=== PATIENT | male | born 1990 | race Caucasian/White ===

== ENCOUNTER 2016-12-07 20:44 | Emergency (ER) | payer MEDICAID ==
[2016-12-07] MEDS ORDERED: KETOROLAC TROMETHAMINE 30 MG/ML VIAL ONE (21:19)
[2016-12-07] MEDS ORDERED: ONDANSETRON HCL 4 MG/2 ML VIAL ONE (21:19)
[2016-12-07 23:27] LABS: CSF GLUCOSE 63 mg/dL (40-70); CSF TOTAL PROTEIN 33 mg/dL (12-60)
[2016-12-07 23:34] LABS: FLUID VOLUME 6 mL
[2016-12-07 23:35] LABS: FLUID COLOR TUBE 1 COLORLESS (COLORLESS)
--- NOTE | 2016-12-08 00:20 | ER NURSING DOCUMENTATION ---
Nurse's Notes [facility] Name:Derrick Camejo Age:26 yrs Sex:Male :1990 Arrival Date:12/07/2016 Time:20:44 Bed1 Private MD: Diagnosis:Viral Illness Presentation: 12/07 20:54 Presenting complaint: Patient states: pt states he has had neck pain nausea and st vomiting starting yesterday. Pt denies any trauma. Pt does not wish to turn his head. Transition of care: Home. 20:54 Acuity: JESSICA 3 st 20:54 Method Of Arrival: Private Vehicle st 20:57 Notified ED Physician of Dr. Pool notified. st 22:37 Acuity: JESSICA 2 lpr Triage Assessment: 20:58 General: Appears uncomfortable, Behavior is cooperative, pt denies any medical hx st though he acts as if there may be some hx of developmental delay. . General: pt does not move his head around but holds it in one position. . Pain: Complains of pain in neck Pain currently is 9 out of 10 on a pain scale. Pain began 1 day ago. EENT: No deficits noted. Neuro: No deficits noted. Respiratory: Airway is patent Respiratory effort is even, unlabored, Respiratory pattern is regular, symmetrical, Breath sounds are clear bilaterally. GI: Abdomen is obese, Abd is soft and non tender X 4 quads. Reports nausea, vomiting. Musculoskeletal: Tenderness present in posterior cervical area Reports pain in posterior cervical area. Historical: - Allergies: No known drug Allergies; - Home Meds: 1. None - PMHx: None; - PSHx: None; - Tetanus: unknown. - Ebola Screening: : Patient denies exposure to infectious person. Patient denies travel to an Ebola-affected area in the 21 days before illness onset. . - Immunization history: Pneumococcal vaccine status is unknown. - Social history: The patient works at [employer]., Grew up in [place]. After high school he went to [employer], studied [employer] in [place]. 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 Just got 2 weeks ago., Smoking status: Patient states former smoker of tobacco. Patient/guardian denies using alcohol, marijuana. Screenin:01 Infectious Disease Risk None. Abuse screen: Denies threats or abuse. Denies injuries st from another. pt states he is safe at home. Nutritional screening: No deficits noted. Assessment: 21:36 General: Appears ill, Behavior is cooperative, mentally delayed.. Pain: Complains of lpr pain in scalp and back and posterior cervical area and neck. Neuro: Level of Consciousness is awake, alert, obeys commands, Oriented to person, place, time. EENT: Oral mucosa is moist. Cardiovascular: No deficits noted. Respiratory: Airway is patent Respiratory effort is even, unlabored, Respiratory pattern is regular, symmetrical, Denies cough. GI: Abdomen is non- distended Reports nausea, vomiting. : No deficits noted. Derm: Skin is flushed. Musculoskeletal: Circulation, motion, and sensation intact Capillary refill < 3 seconds Reports pain in back and posterior cervical area and neck. Nursing diagnosis: Alteration in comfort: actual related to body aches. 12/08 00:14 Reassessment: Patient states feeling better. Patient states symptoms have improved. lpr Vital Signs: 12/07 21:00 BP 125 / 83; Pulse 112; Resp 18; Temp 98.8; Pulse Ox 92% ; Pain 8/10; st 21:35 Temp 98.5(O); lpr 23:44 BP 122 / 63 (auto/); lpr 23:47 Pulse 97; Temp 98.3(O); Pulse Ox 92% on R/A; lpr [place] Coma Score: 22:41 Eye Response: spontaneous(4). Verbal Response: oriented(5). Motor Response: obeys tl1 commands(6). Total: 15. ED Course: 20:49 Patient arrived in ED. ma1 20:53 Trina Mcdonald, RN is Primary Nurse. st 20:[address] 21:04 Valuables Remains with patient Patient has correct armband on for positive st identification. Bed in low position. 21:19 Omar Pool MD is Attending Physician. tl1 21:25 Flu Swab done. Inserted saline lock: 20 gauge in right antecubital area and blood lpr collected. 22:38 Assist Provider Assist provider with lumbar puncture: Set up LP tray. Performed by Omar Pool MD CSF is clear. Puncture site dressed with band aid, Procedure was successful. Patient tolerated well. 23:52 [facility] is Referral Physician. tl1 Administered Medications: 21:30 Drug: Zofran 4 mg; Route: IVP; Infused Over: 2 mins; Site: right antecubital; lpr 12/08 00:15 Follow up: Response: Nausea is decreased lpr 12/07 21:30 Drug: Toradol 15 mg; Route: IVP; Site: right antecubital; lpr 12/08 00:15 Follow up: Response: Pain is decreased lpr 12/07 21:30 Drug: NS 0.9% 1000 ml; Route: IV; Rate: bolus; Site: right antecubital; lpr 22:15 Follow up: IV Status: Completed infusion lpr 22:46 Drug: NS 0.9% 1000 ml; Route: IV; Rate: bolus; Site: right antecubital; lpr 12/08 00:18 Follow up: Stop time, 12/07/16 at 23:48 lpr Intake: Outcome: 12/07 23:53 Discharge ordered by . [email or web address] 12/08 00:13 Discharged to home ambulatory, with significant other. lpr Condition: improved Discharge Assessment: Patient awake, alert and oriented x 3. No cognitive and/or functional deficits noted. Patient verbalized understanding of disposition instructions. Discharge instructions given to patient, significant other, Instructed on discharge instructions, follow up and referral plans. medication usage, Demonstrated understanding of instructions. IV D/Erick 00:19 Patient left the ED. lpr 10:57 Discharge F/U Call: Spoke with: patient. other: Name: pt states he is feeling a st little better. pt wanted to know if it was normal for the LP sight to be sore he was assured that it was. Signatures: Trina Mcdonald RN RN st Roberts, Leslie, RN RN lpr Leigh, Tom, MD MD tl1 [facility]
--- NOTE | 2016-12-08 00:20 | ER PHYSICIAN DOCUMENTATION ---
Physician Documentation [facility] Name:Derrick Camejo Age:26 yrs Sex:Male :1990 Arrival Date:12/07/2016 Time:20:44 Bed1 Private MD: Omar Calabrese Disposition: 12/08 18:03 Chart complete. tl1 Disposition: 12/07/16 23:53 Discharged to Home/Self Care. Impression: Viral Illness. - Condition is Good. - Discharge Instructions: VIRAL SYNDROME (Adult). - Work release form, Medical Reconciliation form form. - Follow up: [facility]; When: 2 - 3 days; Reason: Recheck today's complaints, Continuance of care. - Problem is new. - Symptoms have improved. HPI: 12/07 20:54 This 26 yrs old Male presents to ER via Private Vehicle with complaints of tl1 Neck Problem. 20:54 The patient or guardian complains of pain, that is acute. tl1 21:34 He was well until 2 days ago when he developed some fatigue, malaise, a mild ST and a tl1 mild cough. He had some diffuse myalgias and back pain, subjective fever, and some chills and sweats. Today he developed a stiff painful neck and mild h/a. Because of the neck pain he comes here for evaluation. He is fully immunized.. Historical: - Allergies: No known drug Allergies; - Home Meds: 1. None - PMHx: None; - PSHx: None; - Tetanus: unknown. - Ebola Screening: : Patient denies exposure to infectious person. Patient denies travel to an Ebola-affected area in the 21 days before illness onset. . - Immunization history: Pneumococcal vaccine status is unknown. - Social history: The patient works at [employer]., Grew up in [place]. After high school he went to [employer], studied [employer] in [place]. 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 Just got 2 weeks ago., Smoking status: Patient states former smoker of tobacco. Patient/guardian denies using alcohol, marijuana. ROS: 21:39 Neck: Positive for pain with movement, pain at rest, stiffness, Negative for mass, tl1 rash, swollen nodes, bony tenderness. 21:39 All other systems are negative. Exam: 22:41 Constitutional: This is a well developed, well nourished patient who is awake, alert, tl1 and in no acute distress. Head/Face: Normocephalic, atraumatic. Eyes: Pupils equal round and reactive to light, extra-ocular motions intact. Lids and lashes normal. Conjunctiva and sclera are non-icteric and not injected. Cornea within normal limits. Periorbital areas with no swelling, redness, or edema. 22:41 ENT: Nares patent. No nasal discharge, no septal abnormalities noted. Tympanic tl1 membranes are normal and external auditory canals are clear. Oropharynx with no redness, swelling, or masses, exudates, or evidence of obstruction, uvula midline. Mucous membranes moist. Cardiovascular: Regular rate and rhythm with a normal S1 and S2. No gallops, murmurs, or rubs. Normal PMI, no JVD. No pulse deficits. Respiratory: Lungs have equal breath sounds bilaterally, clear to auscultation and percussion. No rales, rhonchi or wheezes noted. No increased work of breathing, no retractions or nasal flaring. Abdomen/GI: Soft, non-tender, with normal bowel sounds. No distension or tympany. No guarding or rebound. No evidence of tenderness throughout. 22:41 Skin: Warm, dry with normal turgor. Normal color with no rashes, no lesions, and no evidence of cellulitis. 22:41 Neck: External neck: is normal, C-spine: vertebral tenderness, is not appreciated, ROM/movement: pain, that is moderate, with any movement, nuchal rigidity, that is moderate, Lymph nodes: no appreciated lymphadenopathy. 22:41 Neuro: Orientation: is normal, Mentation: is normal, Memory: is normal, Cranial nerves: grossly normal, Motor: moves all fours, Sensation: no obvious gross deficits, Gait: is steady, at a normal pace, appropriate for age. Vital Signs: 21:00 BP 125 / 83; Pulse 112; Resp 18; Temp 98.8; Pulse Ox 92% ; Pain 8/10; st 21:35 Temp 98.5(O); lpr 23:44 BP 122 / 63 (auto/); lpr 23:47 Pulse 97; Temp 98.3(O); Pulse Ox 92% on R/A; lpr [place] Coma Score: 22:41 Eye Response: spontaneous(4). Verbal Response: oriented(5). Motor Response: obeys tl1 commands(6). Total: 15. Procedures: 12/08 00:15 Lumbar Puncture: Patient placed in left lateral decubitus position. Prepped with tl1 Betadine. Draped using sterile technique. Collected 6 ml's of Puncture site dressed with band aid, Patient tolerated well. L3-4 interspace.. MDM: 12/07 21:19 Patient medically screened. tl1 22:44 Differential diagnosis: bacterial meningitis, viral meningitis. Data reviewed: vital tl1 signs, nurses notes, lab test result(s), csf, and as a result, I will discharge patient. Counseling: I had a detailed discussion with the patient and/or guardian regarding: the historical points, exam findings, and any diagnostic results supporting the discharge/admit diagnosis, lab results, the need for outpatient follow up, to return to the emergency department if symptoms worsen or persist or if there are any questions or concerns that arise at home. Medication response: The patient's symptoms have improved. Response to treatment: the patient's symptoms have markedly improved after treatment, and as a result, I will discharge patient. 12/08 00:00 ED course: He received a liter of IVNS and 15 mg of IV toradol and felt somewhat tl1 better. I checked his temp 3 times and it was 98.3-98.5. He continued to have some neck pain. He tolerated the LP very well, and the CSF was completely normal. He appears to have a viral syndrome of some sort. I doubt any deep space neck infection or cervical osteomyelitis, discitis or paravertebral bacterial infection at this time. I did discuss with Derrick and his that while I really doubt any worrisome emergency medical condition now,, that he needs to return to the ED for any worsening.. 12/07 21:52 Order name: INFLUENZA A/B; Complete Time: 23:51 EDMS 12/07 23:38 Interpretation: Normal. tl1 12/07 23:28 Order name: CSF GLUCOSE; Complete Time: 23:51 EDMS 12/07 23:39 Interpretation: Normal: CSF GLUCOSE 63. tl1 12/07 23:28 Order name: CSF TOTAL PROTEIN; Complete Time: 23:51 EDMS 12/07 23:39 Interpretation: CSF TOTAL PROTEIN 33. tl1 12/07 23:36 Order name: WBC WITH DIF, CSF; Complete Time: 23:51 EDMS 12/07 23:40 Interpretation: Normal: FLD COLOR TUBE 2 COLORLESS; FLD COLOR TUBE 3 COLORLESS; FLD tl1 COLOR TUBE 4 COLORLESS; FLD COLOR TUBE 3 POST CENTRIF COLORLESS; FLUID VOLUME 6; FLUID COLOR TUBE 1 COLORLESS; FLUID CLARITY CLEAR; WBC COUNT, BODY FLUID 1. 12/07 23:55 Order name: CSF CULTURE AND GRAM STAIN EDMS 12/08 18:03 Interpretation: Normal: GRAM STAIN NO ORGANISMS SEEN. tl1 12/07 21:05 Order name: Iv Saline Lock; Complete Time: 21:35 st Dispensed Medications: 12/07 21:30 Drug: Zofran 4 mg; Route: IVP; Infused Over: 2 mins; Site: right antecubital; lpr 12/08 00:15 Follow up: Response: Nausea is decreased lpr 12/07 21:30 Drug: Toradol 15 mg; Route: IVP; Site: right antecubital; lpr 12/08 00:15 Follow up: Response: Pain is decreased lpr 12/07 21:30 Drug: NS 0.9% 1000 ml; Route: IV; Rate: bolus; Site: right antecubital; lpr 22:15 Follow up: IV Status: Completed infusion lpr 22:46 Drug: NS 0.9% 1000 ml; Route: IV; Rate: bolus; Site: right antecubital; lpr 12/08 00:18 Follow up: Stop time, 12/07/16 at 23:48 lpr Signatures: Trina Mcdonald RN RN st Roberts, Leslie, RN RN lpr Leigh, Tom, MD MD tl1
== END 2016-12-08 00:19 | disposition home or self-care (01) ==
LOC: ER 20:44
DX: B34.9 Viral infection, unspecified (principal); M54.2 Cervicalgia
CPT/HCPCS: 62270; 82945; 84157; 85007; 87070; 87205; 87449; 89051; 96361; 96374; 96375; 99284; J1885; J2405

== ENCOUNTER 2016-12-20 21:03 | Emergency (ER) | payer MEDICAID ==
[2016-12-20] MEDS ORDERED: ONDANSETRON ODT 4 MG TAB.RAPDIS ONE (21:27)
[2016-12-20] MEDS ORDERED: ACETAMINOPHEN 325 MG TABLET PO ONE (21:36)
[2016-12-20] MEDS ORDERED: IBUPROFEN 600 MG TABLET PO ONE (21:36)
[2016-12-20 21:37] LABS: BASOPHIL# 0.1 X 10^3uL (0.0-0.1); BASOPHILS 0.8 % (0.0-2.0); EOSINOPHILS 2.1 % (0.0-6.0); EOSINOPHILS# 0.2 X 10^3uL (0.0-0.4); HEMATOCRIT 47.2 % (42.0-54.0); HEMOGLOBIN 16.2 g/dL (14.0-18.0); LYMPHOCYTES 36.2 % (20.0-40.0); LYMPHOCYTES# 3.5 X 10^3uL (0.8-3.8); MEAN CELL VOLUME 81.1 fL (80.0-100.0); MEAN CORPUS. HGB CONCENTRATION 34.3 g/dL (32.0-36.0); MEAN CORPUSCULAR HEMOGLOBIN 27.8 pg (29.0-35.0); MEAN PLATELET VOLUME 8.2 fL (7.4-10.4); MONOCYTES 7.5 % (2.0-10.0); MONOCYTES# 0.7 X 10^3uL (0.2-1.0); NEUTROPHILS 53.4 % (54.0-75.0); NEUTROPHILS# 5.2 X 10^3uL (2.6-6.7); PLATELET COUNT 315 X 10^3uL (130-440); RED BLOOD COUNT 5.82 X 10^6uL (4.20-6.10); RED CELL DISTRIBUTION WIDTH 13.1 % (11.5-14.5); WHITE BLOOD COUNT 9.7 X 10^3uL (3.9-10.7)
[2016-12-20 21:56] LABS: C-REACTIVE PROTEIN < 5.0 mg/L (<10.0)
--- NOTE | 2016-12-20 22:05 | ER PHYSICIAN DOCUMENTATION ---
Physician Documentation [facility] Name:Derrick Camejo Age:26 yrs Sex:Male :1990 Arrival Date:12/20/2016 Time:21:03 Bed1 Private MD: Kaden Andres Disposition: 12/20/16 21:54 Discharged to Home/Self Care. Impression: Viral Syndrome - Influenza, Dehydration, Nausea. - Condition is Fair. - Discharge Instructions: DEHYDRATION (6y-Adult), NAUSEA VOMITING 6yAdult - VOMITING (6y-Adult), Viral Disease - VIRAL SYNDROME (Adult). - Prescriptions for Zofran 4 mg Oral - take 1 tablet by ORAL route every 6 hours; 6 tablet. - Medical Reconciliation form form. - Follow up: Private Physician; When: 7 - 10 days; Reason: Recheck today's complaints, Continuance of care. - Problem is an ongoing problem. - Symptoms have improved. - Notes: Drink 2 - 3 quarts of water or Gatorade every day Take Tylenol 650mg by mouth every 6 hours for 2 - 3 days. Take Ibuprofen 600mg by mouth every 6 hours for 2 - 3 days Rest.... Take Zofran 4mg under tongue every 6 hours as needed for nausea or vomiting HPI: 12/20 21:15 This 26 yrs old Male presents to ER via Private Vehicle with complaints of cd Back Pain, Headache. 21:15 The patient presents with pain and tenderness. The symptoms are located in the low cd back. Onset: The symptoms/episode began/occurred gradually, 2 week(s) ago. The pain does not radiate. Associated signs and symptoms: Pertinent positives: headache, nausea, Pertinent negatives: abdominal pain, chest pain, fever, hematuria, numbness, tingling, urinary retention, vomiting. The problem was sustained at home, from a chronic condition, The patient came to the [facility] ED 2 weeks ago with similar symptoms. Dr. Pool performed a Lumbar Puncture which was negative. The patient 's Flu Test was also negative. He denies injury. He drinks very little water.. Severity of symptoms: At their worst the symptoms were mild, in the emergency department the symptoms are unchanged. Historical: - Allergies: No known drug Allergies; - Home Meds: 1. None - PMHx: None; Viral Illness (December 07, 2016); - PSHx: None; - Tetanus: < 10 years. - Ebola Screening: : Patient negative for fever greater than or equal to 101.5 degrees Fahrenheit, and additional compatible Ebola Virus Disease symptoms. - Immunization history: Flu Vaccine < 1 year. - Social history: Smoking status: Patient uses tobacco products, current every day smoker. ROS: 21:15 Eyes: Negative for injury, pain, redness, discharge, blurry vision and loss of vision. cd ENT: Negative for injury, pain, epistaxis and discharge. Neck: Negative for injury, pain, stiffness and swelling. Cardiovascular: Negative for chest pain, palpitations, edema and pleuritic pain. Respiratory: Negative for shortness of breath, dyspnea on exertion, cough, sputum production, wheezing, hemoptysis and pleuritic chest pain. Abdomen/GI: Negative for abdominal pain, nausea, vomiting, diarrhea, constipation, distension, melena, hematochezia and hematemesis. : Negative for injury, bleeding, discharge, swelling, dysuria, frequency or urgency. MS/Extremity: Negative for injury, deformity, edema, calf tenderness, pain or coldness. Skin: Negative for injury, rash, itching and discoloration. 21:15 Neuro: Negative for headache, weakness, numbness, tingling, and seizure. cd 21:15 Constitutional: Positive for fever, poor PO intake, Negative for chills. 21:15 Back: Positive for pain at rest, of the left low back and right low back. 21:15 All other systems are negative. Exam: Head/Face: Normocephalic, atraumatic. Eyes: Pupils equal round and reactive to light, extra-ocular motions intact. Lids and lashes normal. Conjunctiva and sclera are non-icteric and not injected. Cornea within normal limits. Periorbital areas with no swelling, redness, or edema. ENT: Nares patent. No nasal discharge, no septal abnormalities noted. Tympanic membranes are normal and external auditory canals are clear. Oropharynx with no redness, swelling, or masses, exudates, or evidence of obstruction, uvula midline. Mucous membranes dry Neck: Trachea midline, no thyromegaly or masses palpated, and no cervical lymphadenopathy. Supple, full range of motion without nuchal rigidity, or vertebral point tenderness. No Meningismus. Chest/axilla: Normal chest wall appearance and motion. Nontender with no deformity. No lesions are appreciated. Cardiovascular: Regular rate and rhythm with a normal S1 and S2. No gallops, murmurs, or rubs. Normal PMI, no JVD. No pulse deficits. Respiratory: Lungs have equal breath sounds bilaterally, clear to auscultation and percussion. No rales, rhonchi or wheezes noted. No increased work of breathing, no retractions or nasal flaring. Abdomen/GI: Soft, non-tender, with normal bowel sounds. No distension or tympany. No guarding or rebound. No evidence of tenderness throughout. Skin: Warm, dry with normal turgor. Normal color with no rashes, no lesions, and no evidence of cellulitis. MS/ Extremity: Pulses equal, no cyanosis. Neurovascular intact. Full, normal range of motion. 21:30 Neuro: Awake and alert, GCS 15, oriented to person, place, time, and situation. cd Cranial nerves II-XII grossly intact. Motor strength 5/5 in all extremities. Sensory grossly intact. Cerebellar exam normal. Normal gait. 21:30 Constitutional: The patient appears alert, awake, non-diaphoretic, non-toxic, well developed, well nourished, anxious, obese. 21:30 Back: pain, that is very mild, of the left low back and right low back, ROM is normal, normal spinal alignment noted, CVA tenderness, is absent. 21:30 Neuro: Sensation: is normal, Gait: is steady, Deep tendon reflexes are normal. 21:30 Back: No signs of infection over the LP site.. cd Vital Signs: 21:09 BP 142 / 71; Pulse 87; Resp 18; Temp 98.3(O); Pulse Ox 93% on R/A; Weight 90.72 kg; rh Height 5 ft. 7 in. (170.18 cm); Pain 4/10; 22:03 BP 110 / 71; Pulse 77; Resp 16; Pulse Ox 93% on R/A; Pain 1/10; rh 21:09 Body Mass Index 31.32 (90.72 kg, 170.18 cm) rh [place] Coma Score: 21:30 Eye Response: spontaneous(4). Verbal Response: oriented(5). Motor Response: obeys cd commands(6). Total: 15. MDM: 21:10 Data interpreted: Pulse oximetry: on room air is 93 %. Interpretation: normal. 21:30 Differential diagnosis: chronic back pain, Fatigue Pyelonephritis sprain, cd Ureterolithiasis. 21:42 Patient medically screened. 21:50 Data reviewed: vital signs, nurses notes, old medical records, lab test result(s), and cd as a result, I will discharge patient. 21:54 Counseling: I had a detailed discussion with the patient and/or guardian regarding: the cd historical points, exam findings, and any diagnostic results supporting the discharge/admit diagnosis, lab results, the need for outpatient follow up, for a recheck, with the patient's primary care provider, to return to the emergency department if symptoms worsen or persist or if there are any questions or concerns that arise at home. Response to treatment: the patient's symptoms have markedly improved after treatment, the patient's condition has returned to base line, and as a result, I will discharge patient. 12/20 21:49 Order name: CBC AUTO DIF, MDIF/RMOR IF IND; Complete Time: 08:02 EDMS 12/20 21:52 Interpretation: Normal. 12/20 21:57 Order name: C-REACTIVE PROTEIN; Complete Time: 08:02 EDMS 12/21 08:02 Interpretation: Normal. 12/20 21:39 Order name: Urine Dip; Complete Time: 21:42 rh 12/20 21:44 Order name: PO Challenge; Complete Time: 21:44 rh Dispensed Medications: 21:23 Drug: Zofran 4 mg; Route: PO; rh 21:26 Follow up: Response: Nausea is decreased rh 21:26 Drug: Tylenol 975 mg; Route: PO; rh 21:42 Follow up: Response: Pain is decreased rh 21:26 Drug: Ibuprofen 600 mg; Route: PO; rh 21:42 Follow up: Response: Pain is decreased rh Point of Care Testing: Urine Dip: 21:42 pH: 6.0; ; Specific [place]: 1.015; Ketones: Negative; Glucose: Negative; Protein: rh Negative; Leukocytes: Positive; Nitrite: Negative ; Blood: Non Hemolyzed Trace; Bilirubin: Negative ; Urobilinogen: Normal Signatures: Kaden Woodruff MD MD Marina Beck
--- NOTE | 2016-12-20 22:05 | ER NURSING DOCUMENTATION ---
Nurse's Notes [facility] Name:Derrick Camejo Age:26 yrs Sex:Male :1990 Arrival Date:12/20/2016 Time:21:03 Bed1 Private MD: Diagnosis:Viral Syndrome - Influenza;Dehydration;Nausea Presentation: 12/20 21:04 Acuity: JESSICA 4 rh 21:07 Presenting complaint: Patient states: Spinal tap done 2 weeks ago for neck stiffness rh along with N/V, came back clear and his flu was negative. Today he has low back pain, MORGAN and nausea. Transition of care: Home. 21:07 Method Of Arrival: Private Vehicle rh Triage Assessment: 21:08 General: Appears in no apparent distress, Behavior is cooperative. Pain: Complains of rh pain in left low back and right low back HEADACHE. EENT: Oral mucosa is dry. Neuro: Level of Consciousness is awake, alert, obeys commands, Oriented to person, place, time, event. Respiratory: Airway is patent Respiratory effort is even, unlabored, Respiratory pattern is regular, symmetrical. GI: Abdomen is non- distended Reports nausea. : No deficits noted. Derm: Skin is intact, is healthy with good turgor, Skin is pink, warm & dry. Site where spinal tap was done does not show any signs of infection. Historical: - Allergies: No known drug Allergies; - Home Meds: 1. None - PMHx: None; Viral Illness (December 07, 2016); - PSHx: None; - Tetanus: < 10 years. - Ebola Screening: : Patient negative for fever greater than or equal to 101.5 degrees Fahrenheit, and additional compatible Ebola Virus Disease symptoms. - Immunization history: Flu Vaccine < 1 year. - Social history: Smoking status: Patient uses tobacco products, current every day smoker. Screenin:10 Infectious Disease Risk None. Abuse screen: Denies threats or abuse. Denies injuries rh from another. Nutritional screening: No deficits noted. Assessment: 21:09 See Triage Assessment done by same RN. rh Vital Signs: 21:09 BP 142 / 71; Pulse 87; Resp 18; Temp 98.3(O); Pulse Ox 93% on R/A; Weight 90.72 kg; rh Height 5 ft. 7 in. (170.18 cm); Pain 4/10; 22:03 BP 110 / 71; Pulse 77; Resp 16; Pulse Ox 93% on R/A; Pain 1/10; rh 21:09 Body Mass Index 31.32 (90.72 kg, 170.18 cm) rh Charlotte Coma Score: 21:30 Eye Response: spontaneous(4). Verbal Response: oriented(5). Motor Response: obeys cd commands(6). Total: 15. ED Course: 21:03 Patient arrived in ED. ma1 21:03 Marina Beck is Primary Nurse. rh 21:04 Triage completed. rh 21:10 Valuables Remains with patient Patient has correct armband on for positive rh identification. Bed in low position. Call light in reach. Side rails up X 1. 21:20 Diet: Patient given water. rh 21:22 Labs drawn. (by ED staff). Sent per order to lab. rh 21:41 Kaden Woodruff MD is Attending Physician. cd Administered Medications: 21:23 Drug: Zofran 4 mg; Route: PO; rh 21:26 Follow up: Response: Nausea is decreased rh 21:26 Drug: Tylenol 975 mg; Route: PO; rh 21:42 Follow up: Response: Pain is decreased rh 21:26 Drug: Ibuprofen 600 mg; Route: PO; rh 21:42 Follow up: Response: Pain is decreased Point of Care Testing: Urine Dip: 21:42 pH: 6.0; ; Specific [place]: 1.015; Ketones: Negative; Glucose: Negative; Protein: rh Negative; Leukocytes: Positive; Nitrite: Negative ; Blood: Non Hemolyzed Trace; Bilirubin: Negative ; Urobilinogen: Normal Outcome: 21:54 Discharge ordered by . zoya 22:03 Discharged to home ambulatory. rh 22:03 Condition: stable 22:03 Discharge Assessment: Patient awake, alert and oriented x 3. No cognitive and/or functional deficits noted. Patient verbalized understanding of disposition instructions. 22:03 Discharge instructions given to patient, Instructed on discharge instructions, follow up and referral plans. medication usage, Demonstrated understanding of instructions, medications, Prescriptions given X 1. 22:04 Patient left the ED. 12/21 11:48 Discharge F/U Call: Spoke with: patient. Have you made a f/u appointment? No. Reason lp for no f/u appt: Has not had a chance to have a f/u appt yet Signatures: Snow Leonard, SAFIA RN Kaden Mejia MD MD cd Hofsess, Rachel rh Addison, Melissa ma1
== END 2016-12-20 22:04 | disposition home or self-care (01) ==
LOC: ER 21:03
DX: E86.0 Dehydration (principal); B34.9 Viral infection, unspecified; R11.0 Nausea; M54.5 Low back pain; R51 Headache; R50.9 Fever, unspecified; F17.210 Nicotine dependence, cigarettes, uncomplicated
CPT/HCPCS: 85025; 86140; 99283